=== PATIENT | female | born 1980 | race African-American/Black ===

== ENCOUNTER → 2021-10-20 | Outpatient (CLI) | payer SELFPAY ==
[2021-10-20 11:59] LABS: EOSINOPHILS % 4.8 % (0.0-5.0); HEMATOCRIT. 40.1 % (36.0-48.0); HEMOGLOBIN. 13.6 g/dL (12.0-16.0); LYMPHOCYTES % 28.7 % (20.0-50.0); MEAN CORPUSCULAR HEMOGLOBIN 30.4 pg (28.0-32.0); MEAN CORPUSCULAR VOLUME 89.6 fL (81.0-99.0); MEAN PLATELET VOLUME 7.2 fl (7.4-10.4); MONOCYTES % 7.3 % (2.0-8.0); NEUTROPHILS % 58.2 % (40.0-76.0); PLATELET 306 x1000/uL (130-400); RED BLOOD CELL COUNT 4.48 mill/uL (4.2-5.4); RED CELL DISTRIBUTION WIDTH 14.6 % (11.6-14.6)
[2021-10-20 12:49] LABS: CHLORIDE 105 mEq/L (98-107)
[2021-10-20 13:00] LABS: PARTIAL THROMBOPLASTIN TIME 27.6 sec (23.4-31.0); PROTHROMBIN TIME 10.3 sec (9.6-11.0)
[2021-10-20 13:05] LABS: CLARITY URINE CLEAR (CLEAR); COLOR URINE YELLOW (YELLOW); KETONES URINE NEGATIVE (NEGATIVE); LEUKOCYTE ESTERASE URINE NEGATIVE (NEGATIVE); NITRITE URINE NEGATIVE (NEGATIVE); OCCULT BLOOD URINE NEGATIVE (NEGATIVE); PH URINE 6.5 (4.5-8.0); PROTEIN URINE NEGATIVE (NEGATIVE); SPECIFIC GRAVITY URINE 1.004 (1.005-1.030); UROBILINOGEN URINE 0.2 E.U./dL (0.2-1.0)
== END | disposition home or self-care (01) ==
LOC: LAB 11:12
PROVIDERS: ATTEND Obstetrics & Gynecology Obstetrics
DX: Z01.812 Encounter for preprocedural laboratory examination (principal); Z20.822 Contact with and (suspected) exposure to COVID-19
CPT/HCPCS: 36415; 80053; 81003; 85025; 85610; 85730; 86850; 86900; 86901; 87426; C9803

== ENCOUNTER 2021-10-22 06:43 | Inpatient (IN) | payer SELFPAY ==
[~2021-10-22] VITALS: Ht 167.6 cm; Wt 64.0 kg
[2021-10-22] MEDS ORDERED: LACTATED RINGERS 1,000 ML IV SCH (07:30)
[2021-10-22 07:40] LABS: UCG SCREEN NEGATIVE
[2021-10-22] MEDS ORDERED: VASOPRESSIN 20 UNIT/ML 1ML ONE (08:07)
[2021-10-22] MEDS ORDERED: DEXAMETHASONE 4MG/ML 1ML VIAL ONE (08:33)
[2021-10-22] MEDS ORDERED: ONDANSETRON HCL 4MG/2ML INJ ONE (08:33)
[2021-10-22] MEDS ORDERED: ROCURONIUM BROMIDE 10MG/ML VIAL 5ML IV ONE (08:33)
[2021-10-22] MEDS ORDERED: NEOSTIGMINE METHYLSULFATE 1MG/ML 10 ML VIAL ONE (08:34)
[2021-10-22] MEDS ORDERED: FENTANYL CITRATE/PF 50MCG/ML 2ML VIAL ONE (08:34)
[2021-10-22] MEDS ORDERED: PROPOFOL 200MG/20ML VIAL IV ONE (08:34)
[2021-10-22] MEDS ORDERED: MIDAZOLAM HCL 2 MG/2 ML VIAL ONE (08:35)
[2021-10-22] MEDS ORDERED: LIDOCAINE HCL 1% 50ML VIAL (10MG/ML) ONE (08:57)
[2021-10-22] MEDS ORDERED: TRANEXAMIC ACID 1,000 MG in SODIUM CHLORIDE 0.9% 100 ML IV NR (09:00)
[2021-10-22] MEDS ORDERED: HYDROMORPHONE HCL/PF 2MG/ML CPJ ONE (09:28)
[2021-10-22] MEDS ORDERED: METHYLENE BLUE 50 MG/10 ML AMP IV ONE (09:43)
[2021-10-22] MEDS ORDERED: GLYCOPYRROLATE 0.2 MG/ML 2ML VIAL ONE ×3 (09:48→09:49)
[2021-10-22] MEDS ORDERED: LABETALOL 5MG/ML SYR 20 MG/4 ML SYRINGE IV PRN (10:15)
[2021-10-22] MEDS ORDERED: ONDANSETRON HCL 4MG/2ML INJ IV PRN (10:15)
[2021-10-22] MEDS ORDERED: MEPERIDINE HCL/PF 25MG/ML CPJ IV PRN (10:15)
[2021-10-22] MEDS ORDERED: ALBUMIN HUMAN 12.5G/250ML (5%) IV ONE (11:18)
[2021-10-22 11:47] LABS: HEMATOCRIT 31.7 % (36.0-48.0); HEMOGLOBIN 10.4 g/dL (12.0-16.0)
[2021-10-22] MEDS: HYDROMORPHONE HCL/PF 2MG/ML CPJ IV PRN ×4 (12:54→13:20)
[2021-10-22] MEDS ORDERED: NALOXONE INJ IV PRN (13:00)
[2021-10-22] MEDS ORDERED: ONDANSETRON INJ IV PRN (13:00)
[2021-10-22] MEDS ORDERED: HYDROMORPHONE PCA 10MG/50ML IV PRN (13:00)
[2021-10-22] MEDS ORDERED: HYDROCODONE/ACETAMINOPHEN 5/325MG TABLET PO PRN ×2 (16:00)
[2021-10-22] MEDS ORDERED: ACETAMINOPHEN 325MG TABLET PO PRN (16:00)
[2021-10-22] MEDS: LACTATED RINGERS 1,000 ML IV SCH (16:45)
[2021-10-22 18:26] VITALS: BP 103/63
[2021-10-22 20:00] VITALS: BP 103/60
[2021-10-23] VITALS: BP 100/61
[2021-10-23] MEDS: LACTATED RINGERS 1,000 ML IV SCH ×2 (02:45→12:45)
[2021-10-23 04:00] VITALS: BP 128/81
[2021-10-23 06:55] LABS: HEMATOCRIT 26.9 % (36.0-48.0); HEMOGLOBIN 9.1 g/dL (12.0-16.0)
[2021-10-23 08:00] VITALS: BP 92/52
[2021-10-23] MEDS ORDERED: DOCUSATE SODIUM 100MG CAPSULE PO SCH (09:00)
[2021-10-23 12:00] VITALS: BP 107/57
[2021-10-23] MEDS ORDERED: BETHANECHOL CHLORIDE 25 MG TABLET PO SCH ×2 (13:30→14:00)
[2021-10-23] MEDS: BETHANECHOL CHLORIDE 25 MG TABLET PO SCH ×2 (14:13→18:01)
[2021-10-23 16:00] VITALS: BP 115/56
[2021-10-23 17:29] VITALS: BP 108/64
== END 2021-10-23 18:39 | disposition home or self-care (01) | DRG 519 ==
LOC: OR 06:43 → 6EST 16:53
PROVIDERS: ADMIT Obstetrics & Gynecology Obstetrics; ATTEND Obstetrics & Gynecology Obstetrics
PROC: 0UB90ZZ Excision of Uterus, Open Approach (ICD-10-PCS; principal; 2021-10-22)
PROC: 3E0P7KZ Introduction of Other Diagnostic Substance into Female Reproductive, Via Natural or Artificial Opening (ICD-10-PCS; 2021-10-22)
PROC: 0U9 Female Reproductive System, Drainage (ICD-10-PCS; 2021-10-22)
DX: D25.2 Subserosal leiomyoma of uterus (principal); D25.0 Submucous leiomyoma of uterus; D25.1 Intramural leiomyoma of uterus; Z82.49 Family history of ischemic heart disease and other diseases of the circulatory system; Z83.3 Family history of diabetes mellitus
CPT/HCPCS: 36415; 81025; 85014; 85018; 86850; 86900; J1100; J1170; J2250; J2405; J2704; J2710; J3010; J3490; J7050; J7120; P9041; Q9968